=== PATIENT | male | born 1950 | race Caucasian/White ===

== ENCOUNTER 2022-03-30 10:35 | Emergency (ER) | payer OTHER, MEDICAID, SELFPAY ==
--- NOTE | ~2022-03-30 | CT_ITS ---
EXAMINATION: CT CHEST WITHOUT CONTRAST CLINICAL INFORMATION: Dyspnea. Recent rib fracture. COMPARISON: Previous chest x-ray most recent November [address] August 2018 TECHNIQUE: Axial images through the chest without IV contrast. This CT examination was performed using dose optimization techniques as appropriate, variously including the following: *Automated exposure control *Adjustment of mA and/or kV according to patient size (this includes techniques or standardized protocols for targeted exams where dose is matched to indication/reason for exam; i.e. extremities or head) *Use of iterative reconstruction technique DLP: 344 mGy-cm FINDINGS: LUNGS: There is scarring or subsegmental atelectasis at the right lung base. MEDIASTINUM: The heart is upper normal in size. There is mild coronary artery calcification. There is no pericardial effusion. There is evidence of atherosclerotic disease of the thoracic aorta. Aorta is normal in caliber. There are no enlarged hilar or mediastinal lymph nodes are PLEURA: There is a small right pleural effusion. There is no left pleural effusion. There is no pneumothorax. AXILLA: No lymphadenopathy. UPPER ABDOMEN: There is a 1 cm cyst in the upper pole of the right kidney. OSSEOUS STRUCTURES: There are healing right anterior second through sixth rib series. CT/CT chest wo con IMPRESSION: Healing right anterior second through sixth rib fractures. Segmental atelectasis at the right lung base. Small right pleural effusion. No pneumothorax. Fleischner guidelines were followed.
--- NOTE | ~2022-03-30 | NM_ITS ---
EXAMINATION: PULMONARY PERFUSION STUDY CLINICAL INFORMATION: Dyspnea, evaluate for pulmonary embolism. COMPARISON: No previous lung scan is available for comparison. Chest CT dated 03/30/2022, the same date as this lung scan, is available for comparison. The most recent chest radiographs available for comparison are dated 12/11/2019. TECHNIQUE: Following the intravenous administration of 4.0 mCi Tc-99m MAA an 8-view perfusion study was performed using a dual detector gamma scintillation camera. No ventilation images were obtained. FINDINGS: Perfusion images: No segmental perfusion defects are present. There is a mild diffuse decrease in activity in the right lung most severely at the right lung base. There is a small subsegmental perfusion defect present laterally in the right lower lobe but no additional focal anatomic appearing perfusion defects present. The contemporaneous CT scan shows a small right pleural effusion that is likely responsible for the mild diffusely decreased activity in the right lung described above. There is also some fluid tracking into the interlobar fissures that likely accounts for the small focal perfusion defect in this region described above. NM/NM pul perfusion IMPRESSION: Very low probability of pulmonary embolism. Mild abnormalities in the right lung are likely predominantly due to the right pleural effusion.
[2022-03-30 10:54] VITALS: BP 86/55; BP 96/61; PULSE 85; PULSE 96; RESP 16; O2SAT 96; O2SAT 98; BMI 40.4
--- NOTE | 2022-03-30 10:57 | ECG_ITS ---
Test Reason : hypotensive Blood Pressure : / mmHG Vent. Rate : 089 BPM Atrial Rate : 089 BPM P-R Int : 168 ms QRS Dur : 090 ms QT Int : 356 ms P-R-T Axes : 047 051 049 degrees QTc Int : 433 ms Normal sinus rhythm Normal ECG When compared with ECG of 29-MAR-2019 20:14, No significant change was found Referred By: Heidi Vivas Electronically Signed By:CONRAD ALEJO MD
--- NOTE | 2022-03-30 10:58 | ED_ITS ---
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 Mode of arrival: EMS Limitations: no limitations History of Present Illness MD Complaint: generalized weakness (low BP) Onset (ago): week(s) (2) Duration: constant Location: generalized Migration: none Severity: mild Quality: aching Relieving factors: none Exacerbating factors: other (has been taking his BP medications when they were held during [place] [facility] [place] PEA cardiac arrest post PE/fentanyl use complicated by CT and hemothorax, took his lisinopril and amlodipine this AM) Context: recent illness and other (resumed meds when they were held, takes his eliquis daily) Associated symptoms: other (chronic dyspnea since prior to his cardiac arrest) Related Data Allergies Allergy/AdvReac Type Severity Reaction Status Date / Time No Known Allergies Allergy Unverified 08/14/20 15:29 [No Known Allergies*] Review of Systems Review of Systems: Constitutional : No Fever, No Chills ENT/Mouth : No sore throat, No Rhinorrhea, No Swallowing Difficulty Eyes: No Eye Pain, No Swelling, No Redness Cardiovascular : No Chest Pain, positive SOB, No Orthopnea, no Edema Respiratory : No Cough, No Sputum, No Wheezing, positive dyspnea Gastrointestinal : No Nausea, No Vomiting, No Diarrhea, No abdominal Pain, No Hematochezia, No Melena Genitourinary : No Dysuria, No Urinary Frequency, No Hematuria Musculoskeletal : No joint pain, No Myalgias Skin : No Skin Lesions, No rash Neuro : No Weakness, No Numbness, No Dizziness, No Headache Psych : No Anxiety/Panic, No Depression Heme/Lymph: No Bruising, No Lymphadenopathy Endocrine : No Polyuria, No Polydipsia All other systems reviewed and are negative PMFSH Past Medical History Attestation statement: The following information was validated with the patient. Source: old records reviewed Medical History Asthma Cardiac arrest CVA (cerebral vascular accident) GERD (gastroesophageal reflux disease) Hyperlipemia Peripheral vascular disease Pulmonary embolus Social History Social History (Updated 03/30/22 @ 11:19 by Heidi Vivas DO) Patient Tobacco Use Status: Current everyday Tobacco user Advance Directives: No Advance Directives Information Provided: No Physical Exam Vital Signs: Vital Signs: Last Vital Signs Pulse 87 03/30/22 13:53 Resp 28 H 03/30/22 13:53 BP 106/70 03/30/22 13:00 Pulse Ox 97 03/30/22 13:00 BMI result Body Mass Index 40.4 Appearance: Alert. Oriented X3. No acute distress. Eyes: Pupils equal, round and reactive to light. ENT: Pharynx normal. Neck: Normal inspection. Neck supple. CVS: Normal heart rate and rhythm. Pulses normal. Respiratory: No respiratory distress. Breath sounds diminished both bases Abdomen: Soft and non-tender. Skin: Skin warm and dry. Normal skin color. Normal skin turgor. Extremities: No lower extremity edema. No calf ttp Neuro: Oriented X 3. No motor deficit. No sensory deficit. Course Course Course Narrative: [facility] [place] Cr 1.3 O2 supplementation DC notes - BP medications held on DC BP 94/52 BP increasing with fluids albuterol ordered, Cr at baseline, procalcitonin low no PE, small right pleural effusion which is expected no signs of infection has no complaints RR and pulm issues at baseline per [facility] [place] CM looking into supplemental O2 needs RR high due to patient splints because his ribs hurt we did discuss pulm toilet MDM - Weakness MDM Narrative Medical decision making narrative: 71 yo male with hx of PEA arreste due to bilateral PE on 02/17 at [facility] found to be fentanyl and opiate pos on 02/21 suffered respiratory distress found to have displaced rib fractures, costochondral fractures, R sided hemothorax and underwent R sided chest tube s/p removal 02/26. He was off HTN medications while in hospital due to low BPs but when he was DC 2 weeks ago he resumed his lisinopril 40mg and amlodipine 5mg. He took a dose this AM. Went to PCP for FU appointment and was found to be hypotensive other than persistent diff breathing he has no complaints no dizziness, no GIB symptoms. Reports he is compliant with his eliquis. Will obtain labs, CTA for pneumonia/recurrent PE given persistent dyspnea and start IVF. Hypotension due to medications and not infection or severe sepsis. The patient states he was not aware he was told hold his old medications - PCP has taken the BP medications and called the pharmacy to hold those medications Lab Data Result diagrams: 03/30/22 11:15 03/30/22 11:15 Labs: Lab Results 03/30/22 03/30/22 03/30/22 Range/Units 11:15 11:15 11:15 WBC 9.7 (4.8-10.8) X10*3/uL RBC 3.47 L (4.60-5.80) X10*6/uL Hgb 10.7 L (14.0-18.0) g/dl Hct 34.7 L (42.0-52.0) % MCV 100.0 H (80.0-98.0) fL MCH 30.8 (27.0-33.0) pg MCHC 30.8 L (31.0-36.0) g/dl RDW 16.2 H (11.0-16.0) % Plt Count 280 (160-400) X10*3/uL MPV 10.7 (9.4-12.4) fL Immature Gran % (Auto) 0.3 (0.0-0.4) % Neut % (Auto) 67.9 (45-73) % Lymph % (Auto) 24.8 (20-40) % [place] % (Auto) 5.5 (2-11) % Eos % (Auto) 1.2 (0-4) % Baso % (Auto) 0.3 (0-2) % Lymph # (Auto) 2.4 (1.2-4.9) X10*3/uL [place] # (Auto) 0.5 (0.1-1.2) X10*3/uL Eos # (Auto) 0.1 (0.0-0.4) X10*3/uL Baso # (Auto) 0.0 (0.0-0.2) X10*3/uL Abs Immat Gran (auto) 0.03 (0.00-0.03) X10*3/uL Absolute Neuts (auto) 6.6 (2.0-8.3) x10*3/uL Absolute Nucleated RBC 0.000 (0.0-0.012) X10*3/uL Nucleated RBC % (auto) 0.0 (0.0-0.2) /100WBC PT 18.7 H (9.9-13.0) SEC INR 1.6 H (0.9-1.1) APTT 33.0 (24.1-38.0) SEC Sodium 140 (135-145) mmol/L Potassium 4.2 (3.3-5.1) mmol/L Chloride 103 (96-108) mmol/L Carbon Dioxide 27 (22-29) mmol/L Anion Gap 14 (12-20) BUN 16 (9-16) mg/dL Creatinine 1.58 H (0.5-1.4) mg/dL Estim Creat Clear Calc 46.4 Estimated GFR 44 Random Glucose 135 H (60-115) mg/dL Lactic Acid (0.5-2.0) mmol/L Calcium 9.5 (8.4-10.2) mg/dL Magnesium 2.0 (1.6-2.6) mg/dL Total Bilirubin 0.6 (0.0-1.0) mg/dL Direct Bilirubin 0.2 (0.0-0.5) mg/dL AST 11 (5-37) U/L ALT 15 (0-40) U/L Alkaline Phosphatase 74 (39-117) U/L Troponin I High Sens (<3.5-35.0) ng/L Total Protein 6.4 L (6.5-8.0) g/dL Albumin 3.7 (3.5-5.0) g/dL Lipase 31 (8-78) U/L Procalcitonin ng/mL COVID-19 (RASHEL) (Negative) COVID-19 Clin Com 03/30/22 03/30/22 03/30/22 Range/Units 11:15 11:15 11:15 WBC (4.8-10.8) X10*3/uL RBC (4.60-5.80) X10*6/uL Hgb (14.0-18.0) g/dl Hct (42.0-52.0) % MCV (80.0-98.0) fL MCH (27.0-33.0) pg MCHC (31.0-36.0) g/dl RDW (11.0-16.0) % Plt Count (160-400) X10*3/uL MPV (9.4-12.4) fL Immature Gran % (Auto) (0.0-0.4) % Neut % (Auto) (45-73) % Lymph % (Auto) (20-40) % [place] % (Auto) (2-11) % Eos % (Auto) (0-4) % Baso % (Auto) (0-2) % Lymph # (Auto) (1.2-4.9) X10*3/uL [place] # (Auto) (0.1-1.2) X10*3/uL Eos # (Auto) (0.0-0.4) X10*3/uL Baso # (Auto) (0.0-0.2) X10*3/uL Abs Immat Gran (auto) (0.00-0.03) X10*3/uL Absolute Neuts (auto) (2.0-8.3) x10*3/uL Absolute Nucleated RBC (0.0-0.012) X10*3/uL Nucleated RBC % (auto) (0.0-0.2) /100WBC PT (9.9-13.0) SEC INR (0.9-1.1) APTT (24.1-38.0) SEC Sodium (135-145) mmol/L Potassium (3.3-5.1) mmol/L Chloride (96-108) mmol/L Carbon Dioxide (22-29) mmol/L Anion Gap (12-20) BUN (9-16) mg/dL Creatinine (0.5-1.4) mg/dL Estim Creat Clear Calc Estimated GFR Random Glucose (60-115) mg/dL Lactic Acid 2.5 H* (0.5-2.0) mmol/L Calcium (8.4-10.2) mg/dL Magnesium (1.6-2.6) mg/dL Total Bilirubin (0.0-1.0) mg/dL Direct Bilirubin (0.0-0.5) mg/dL AST (5-37) U/L ALT (0-40) U/L Alkaline Phosphatase (39-117) U/L Troponin I High Sens 7.1 (<3.5-35.0) ng/L Total Protein (6.5-8.0) g/dL Albumin (3.5-5.0) g/dL Lipase (8-78) U/L Procalcitonin 0.23 ng/mL COVID-19 (RASHEL) (Negative) COVID-19 Clin Com 03/30/22 Range/Units 11:33 WBC (4.8-10.8) X10*3/uL RBC (4.60-5.80) X10*6/uL Hgb (14.0-18.0) g/dl Hct (42.0-52.0) % MCV (80.0-98.0) fL MCH (27.0-33.0) pg MCHC (31.0-36.0) g/dl RDW (11.0-16.0) % Plt Count (160-400) X10*3/uL MPV (9.4-12.4) fL Immature Gran % (Auto) (0.0-0.4) % Neut % (Auto) (45-73) % Lymph % (Auto) (20-40) % [place] % (Auto) (2-11) % Eos % (Auto) (0-4) % Baso % (Auto) (0-2) % Lymph # (Auto) (1.2-4.9) X10*3/uL [place] # (Auto) (0.1-1.2) X10*3/uL Eos # (Auto) (0.0-0.4) X10*3/uL Baso # (Auto) (0.0-0.2) X10*3/uL Abs Immat Gran (auto) (0.00-0.03) X10*3/uL Absolute Neuts (auto) (2.0-8.3) x10*3/uL Absolute Nucleated RBC (0.0-0.012) X10*3/uL Nucleated RBC % (auto) (0.0-0.2) /100WBC PT (9.9-13.0) SEC INR (0.9-1.1) APTT (24.1-38.0) SEC Sodium (135-145) mmol/L Potassium (3.3-5.1) mmol/L Chloride (96-108) mmol/L Carbon Dioxide (22-29) mmol/L Anion Gap (12-20) BUN (9-16) mg/dL Creatinine (0.5-1.4) mg/dL Estim Creat Clear Calc Estimated GFR Random Glucose (60-115) mg/dL Lactic Acid (0.5-2.0) mmol/L Calcium (8.4-10.2) mg/dL Magnesium (1.6-2.6) mg/dL Total Bilirubin (0.0-1.0) mg/dL Direct Bilirubin (0.0-0.5) mg/dL AST (5-37) U/L ALT (0-40) U/L Alkaline Phosphatase (39-117) U/L Troponin I High Sens (<3.5-35.0) ng/L Total Protein (6.5-8.0) g/dL Albumin (3.5-5.0) g/dL Lipase (8-78) U/L Procalcitonin ng/mL COVID-19 (RASHEL) Negative (Negative) COVID-19 Clin Com See Note ECG Data Attestation: I personally reviewed and interpreted this ECG as follows: ECG interpretation date: 03/30/22 ECG interpretation time: 11:12 Interpretation: Rate: 89 Rhythm: NSR Haigler: normal Normal P waves. Normal CARA. Normal QRS complex. ST T wave : normal no IBRAHIMA qTC: normal prior studies: no acute ischemia The study has been interpreted contemporaneously by me. . Discharge Plan Discharge Clinical Impression: Hypotension Qualifiers: Hypotension type: hypotension due to drug Qualified Code(s): I95.2 - Hypotension due to drugs Patient Disposition: Home, Self-Care Instructions: Hypotension (ED) Additional Instructions: return to ED for any worsening symptoms or concerns regresar al servicio de urgencias por cualquier empeoramiento de los s?ntomas o inquietudes Controle valles presi?n arterial y aseg?rese de que no baje de 90 (el n?columba superior). NO TOME NORAH?N MEDICAMENTO PARA LA PRESI?N ARTERIAL consulte a valles m?dico habitual en 2 d?as Interventions: ED Discharge Assessment Last Done: 03/30/22 15:19 Discharge Date/Time: 03/30/22 15:20 Print Language: Norwegian
[2022-03-30] MEDS: 0.9 % Sodium Chloride 1,000 ML 999 ML IVCONT (11:22)
[2022-03-30 11:24] VITALS: BP 106/64
[2022-03-30 11:30] LABS: MANUAL DIFF FLAG NO
[2022-03-30 11:39] LABS: INTERNATIONAL NORM RATIO 1.6 (0.9-1.1); Prothrombin Time 18.7 SEC (9.9-13.0)
[2022-03-30 11:45] VITALS: BP 97/56; PULSE 89; RESP 38; O2SAT 95
[2022-03-30 11:48] LABS: Basophils Percent Auto 0.3 % (0-2); Eosinophils Absolute Auto 0.1 X10*3/uL (0.0-0.4); Eosinophils Percent Auto 1.2 % (0-4); Hematocrit 34.7 % (42.0-52.0); Hemoglobin 10.7 g/dl (14.0-18.0); Imm Gran Abs Auto 0.03 X10*3/uL (0.00-0.03); Imm Gran Pct Auto 0.3 % (0.0-0.4); Lactic Acid 2.5 mmol/L (0.5-2.0); Lymphocytes Absolute Auto 2.4 X10*3/uL (1.2-4.9); Lymphocytes Percent Auto 24.8 % (20-40); Mean Corpuscular HGB Conc 30.8 g/dl (31.0-36.0); Mean Corpuscular Hemoglobin 30.8 pg (27.0-33.0); Mean Platelet Volume 10.7 fL (9.4-12.4); Monocytes Absolute Auto 0.5 X10*3/uL (0.1-1.2); Monocytes Percent Auto 5.5 % (2-11); Neutrophils Absolute Auto 6.6 x10*3/uL (2.0-8.3); Neutrophils Percent Auto 67.9 % (45-73); Platelet Count 280 X10*3/uL (160-400); Red Blood Count 3.47 X10*6/uL (4.60-5.80); Red Cell Distribution Width 16.2 % (11.0-16.0); White Blood Count 9.7 X10*3/uL (4.8-10.8)
[2022-03-30 11:50] LABS: Alanine Aminotransferase 15 U/L (0-40); Albumin Level 3.7 g/dL (3.5-5.0); Alkaline Phosphatase 74 U/L (39-117); Anion Gap 14 (12-20); Aspartate Amino Transferase 11 U/L (5-37); Bilirubin Direct 0.2 mg/dL (0.0-0.5); Bilirubin Total 0.6 mg/dL (0.0-1.0); Blood Urea Nitrogen 16 mg/dL (9-16); Calcium 9.5 mg/dL (8.4-10.2); Carbon Dioxide 27 mmol/L (22-29); Chloride 103 mmol/L (96-108); Creatinine Clr Calc Pharmacy 46.4; Estimated Glomerular Filt Rate 44; Glucose Random 135 mg/dL (60-115); Lipase 31 U/L (8-78); Potassium 4.2 mmol/L (3.3-5.1); Sodium 140 mmol/L (135-145); Total Protein 6.4 g/dL (6.5-8.0)
[2022-03-30 11:56] LABS: COVID-19 Test Negative (Negative); IDNOW Serial# 16C4AD1C
[2022-03-30 11:57] LABS: Troponin-I High Sensitivity 7.1 ng/L (<3.5-35.0)
[2022-03-30 12:57] LABS: Procalcitonin 0.23 ng/mL
[2022-03-30 13:00] VITALS: BP 106/70; PULSE 88; RESP 16; O2SAT 97
[2022-03-30 13:29] LABS: Reflex Lactate? Lactic Acid Added
[2022-03-30] MEDS: Albuterol Sulfate (0.083%) 2.5 MG/3 ML VIAL.NEB INHALE (13:51)
[2022-03-30 13:53] VITALS: PULSE 87; RESP 28; O2SAT 97
== END 2022-03-30 15:20 | disposition home or self-care (01) ==
LOC: HO.ED 14:42
PROVIDERS: Emergency Provider Emergency Medicine; PCP Internal Medicine
DX: I95.2 Hypotension due to drugs (principal); F17.200 Nicotine dependence, unspecified, uncomplicated; Z20.822 Contact with and (suspected) exposure to COVID-19; Z79.899 Other long term (current) drug therapy; Z71.6 Tobacco abuse counseling
CPT/HCPCS: 71250; 78580; 80048; 80076; 83605; 83690; 83735; 84145; 84484; 85025; 85610; 85730; 87040; 87635; 93005; 94640; 96360; 99284; A9540

== ENCOUNTER 2022-04-07 09:39 | Outpatient (REF) | payer OTHER, MEDICAID, SELFPAY ==
--- NOTE | ~2022-04-07 | US_ITS ---
EXAMINATION: US VENOUS ULTRASOUND WITH DOPPLER LOWER EXTREMITY, BILATERAL CLINICAL INFORMATION: Leg pain and swelling. History of old left lower extremity DVT. COMPARISON: Left lower extremity DVT study 01/22/2013 TECHNIQUE: Ultrasound of the deep veins is performed from the hip to the calf with compression sonography and color and pulse Doppler assessment. Spectral analysis with color-flow imaging is performed. FINDINGS: RIGHT: Right common femoral vein demonstrates normal compressibility and color flow consistent with patency. The right profundus femoris vein is patent. Within the proximal portion of the right superficial femoral vein there is a linear echogenic focus resulting in incomplete compression of the vein although prominent color flow is noted. Findings have the appearance of nonocclusive chronic clot. The remainder of the right superficial femoral vein and popliteal vein demonstrate normal compressibility and color flow consistent with patency. Evaluation of the right calf veins limited secondary to overlying surgical scarring, however, there is also suggestion of some mild chronic clot within the peroneal vein. The right posterior tibial vein demonstrate normal compressibility and color flow consistent with patency. LEFT: There is normal venous compression and respiratory variation and augmented flow. The visualized common femoral vein, superficial femoral vein, profunda femoral vein, popliteal vein, and the trifurcation region shows no evidence of deep venous thrombosis. There is no significant popliteal fossa cyst. US/US venous duplex LE BI IMPRESSION: 1. No ultrasound evidence to suggest acute PE within either lower extremity. 2. Suspected mild nonocclusive thrombus within the proximal portion of the right superficial femoral vein and likely within the right peroneal vein. Clinical correlation recommended. Follow-up imaging can be obtained as clinically indicated.
== END 2022-04-07 09:40 | disposition home or self-care (01) ==
LOC: HO.US 09:39
PROVIDERS: PCP Internal Medicine; Visit Provider Registered Nurse Community Health
DX: M25.471 Effusion, right ankle (principal)
CPT/HCPCS: 93970

== ENCOUNTER 2022-04-08 10:05 | Outpatient (REF) | payer OTHER, MEDICAID, SELFPAY ==
--- NOTE | ~2022-04-08 | XR_ITS ---
EXAMINATION: XR ANKLE, RIGHT CLINICAL INFORMATION: Ankle effusion COMPARISON: None TECHNIQUE: AP, lateral, and mortise views of the right ankle. FINDINGS: Visualized portion of the distal tibia and fibula demonstrate no fracture. Ankle mortise is maintained. There is mild diffuse soft tissue swelling of the ankle. Tiny plantar calcaneal enthesophytes. Soft tissue surgical clips project over the medial calf. XR/XR ankle RT min 3V IMPRESSION: Mild soft tissue swelling of the ankle without fracture.
== END 2022-04-08 10:06 | disposition home or self-care (01) ==
LOC: HO.XRAY 10:05
PROVIDERS: Absent Provider Internal Medicine; PCP Internal Medicine; Visit Provider Registered Nurse Community Health
DX: M25.471 Effusion, right ankle (principal)
CPT/HCPCS: 73610

== ENCOUNTER 2022-06-14 15:33 | Outpatient (REF) | payer OTHER, SELFPAY | END 2022-06-14 15:34 | disposition home or self-care (01) | LOC: HO.CT 15:33 | PROVIDERS: PCP Internal Medicine; Visit Provider Surgery Vascular Surgery | DX: Z13.89 Encounter for screening for other disorder (principal) ==

== ENCOUNTER 2022-06-17 09:25 | Outpatient (REF) | payer OTHER, SELFPAY | END 2022-06-17 09:26 | disposition home or self-care (01) | LOC: HO.CT 09:25 | PROVIDERS: PCP Internal Medicine; Visit Provider Surgery Vascular Surgery | DX: Z13.89 Encounter for screening for other disorder (principal) ==

== ENCOUNTER 2022-06-21 12:40 | Outpatient (REF) | payer OTHER, SELFPAY ==
[2022-06-17] MEDS: iohexoL 350 MG/ML 100 ML INFUS..BTL IV (14:36)
--- NOTE | ~2022-06-21 | CT_ITS ---
STUDY PERFORMED: CTA ABDOMEN, PELVIS AND LOWER EXTREMITY RUNOFF WITH CONTRAST HISTORY: Pain in popliteal fossa and calf. DESCRIPTION: Routine abdominal aorta and lower extremity runoff CTA protocol with contrast was performed. 100 mL of Omnipaque 350 was administered. 3D POSTPROCESSING: Multiple 3-D angiographic images were processed from the initial data set by the [facility] under concurrent physician supervision. This CT examination was performed using dose optimization techniques as appropriate, variously including the following: *Automated exposure control *Adjustment of mA and/or kV according to patient size (this includes techniques or standardized protocols for targeted exams where dose is matched to indication/reason for exam; i.e. extremities or head) *Use of iterative reconstruction technique DLP: 1212 mGy-cm. COMPARISON: CT chest 03/30/2022, CT abdomen and pelvis 08/31/2018 FINDINGS: VASCULAR: ABDOMINAL AORTA: Mild atherosclerotic changes without aneurysm or dissection. RIGHT LOWER EXTREMITY: - Common Iliac Artery: Widely patent. - Internal Iliac Artery: Widely patent. - External Iliac Artery: Widely patent. - Common Femoral Artery: Widely patent. - Profunda Femoral Artery: Widely patent. - Superficial Femoral Artery: Occluded proximally. - Popliteal Artery: Occluded. - Tibioperoneal Trunk: Reconstituted and patent. - Posterior Tibial Artery: Small caliber seen to the mid calf with reconstitution at level of ankle. - Peroneal Artery: Patent. - Anterior Tibial Artery: Reconstituted via collaterals. LEFT LOWER EXTREMITY: - Common Iliac Artery: Occluded shortly after its origin. - Internal Iliac Artery: Occluded. - External Iliac Artery: Occluded. - Right to left cross femoral bypass graft: Occluded. - Common Femoral Artery: Occluded. - Profunda Femoral Artery: Occluded. Some branches reconstitute via collaterals. - Superficial Femoral Artery: Occluded with isolated segmental reconstitution in the distal thigh. - Popliteal Artery: Occluded. - Tibioperoneal Trunk: Reconstituted and patent. - Posterior Tibial Artery: Patent. - Peroneal Artery: Patent. - Anterior Tibial Artery: Reconstituted and patent. CELIOMESENTERIC ARTERIES: Celiac and SMA are patent. The AURELIANO origin is not seen. RENAL ARTERIES: 2 renal arteries are present on the right both with some mild ostial disease. Single left-sided renal artery which is patent. Incidental note made of retroaortic left renal vein. NONVASCULAR: Lung Bases: The visualized lung bases are unremarkable aside from bibasilar atelectasis/scarring, right greater than left. Liver, Gallbladder and Biliary Tree: The liver is normal in size, shape, and attenuation. No focal hepatic lesion or biliary ductal dilatation is present. The gallbladder is unremarkable with no evidence of radiopaque gallstones, gallbladder wall thickening, or obvious pericholecystic inflammatory changes. Pancreas: Unremarkable. Spleen: Unremarkable. Adrenal Glands: Unremarkable. Kidneys and Ureters: The kidneys are normal in size and attenuation. Some areas of focal scarring are present bilaterally. Bilateral Bosniak class I simple renal cysts are again seen which need no further follow-up. No hydronephrosis, hydroureter, or calculi seen. No perinephric stranding. Bladder: Unremarkable. Gastrointestinal Tract: The small and large bowel are unremarkable aside from the presence of colonic diverticula without diverticulitis. The appendix is unremarkable. Abdominal Wall: No significant hernia is appreciated. See above regarding cross femoral bypass graft. Lymph Nodes: No retroperitoneal lymphadenopathy. Pelvic Viscera: Unremarkable. Osseous Structures: Unremarkable. Some mild degenerative changes are seen in the lower thoracic spine. CT/CT angio abd aorta runoff IMPRESSION: 1. Right runoff significant for SFA occlusion and reconstituted tibial vessels as described above. 2. Left runoff significant for iliac occlusion as well as an occluded cross femoral bypass graft. There is segmental reconstitution of the isolated portion of distal SFA with reconstituted three-vessel runoff seen below the level of the knee. 3. Incidental nonvascular findings as described above.
== END 2022-06-21 12:41 | disposition home or self-care (01) ==
LOC: HO.CT 12:40
PROVIDERS: PCP Internal Medicine; Visit Provider Surgery Vascular Surgery
DX: Z01.818 Encounter for other preprocedural examination (principal); I99.8 Other disorder of circulatory system; I82.409 Acute embolism and thrombosis of unspecified deep veins of unspecified lower extremity
CPT/HCPCS: 75635; Q9967

== ENCOUNTER 2022-06-24 08:20 | Outpatient (REF) | payer OTHER, SELFPAY ==
--- NOTE | ~2022-06-24 | CT_ITS ---
EXAMINATION: CT ANGIOGRAM CHEST CLINICAL INFORMATION: Preop possible redo bypass. COMPARISON: CT chest 03/30/2022, CT abdomen and pelvis 08/31/2018. TECHNIQUE: Multiple axial images were obtained through the chest after the administration of 70 mL of Omnipaque 350 intravenous contrast. Extensive vascular post-processing including two-dimensional and three-dimensional reformatted images were created and reviewed on an independent workstation. This CT examination was performed using dose optimization techniques as appropriate, variously including the following: *Automated exposure control *Adjustment of mA and/or kV according to patient size (this includes techniques or standardized protocols for targeted exams where dose is matched to indication/reason for exam; i.e. extremities or head) *Use of iterative reconstruction technique DLP: 204 mGy-cm. VASCULAR FINDINGS: Calcific atherosclerotic changes are present in the thoracic aorta without aneurysm, dissection, stenosis or intramural ulceration. A three-vessel branching pattern of the aortic arch is seen with widely patent great vessels. Some minimal calcifications are seen at the origin of the left subclavian and left carotid without significant stenosis. The descending thoracic aorta is unremarkable. Some minimal calcific plaque seen in the visualized portion of the normal caliber abdominal aorta. The celiac and SMA included on this study are patent. A single right renal artery is seen in its entirety and is patent. Partial visualization of a smaller accessory right renal artery. Left renal artery not included on the exam. FINDINGS: LUNGS: Scattered areas of atelectasis/scarring are seen, right greater than left. The lungs are otherwise clear with no evidence of worrisome inflammation or nodules. MEDIASTINUM: Heart size normal. No mediastinal or hilar lymphadenopathy. PLEURA: Previously seen right pleural effusion has resolved. No remaining effusions are seen in either lung. AXILLA/CHEST WALL: No lymphadenopathy. UPPER ABDOMEN: There are areas of bilateral renal cortical scarring seen, slightly progressed when compared to 08/31/2018. The adrenal glands, visualized liver, gallbladder and spleen appear unremarkable. OSSEOUS STRUCTURES: Multiple old healed bilateral anterolateral rib fractures are once again seen. CT/CT angio chest aorta IMPRESSION: No significant abnormality is seen involving the thoracic aorta and great vessels. Previously seen right pleural effusion has resolved. There are areas of bilateral renal cortical scarring which have progressed slightly when compared to the 2018 study. Fleischner guidelines were followed.
[2022-06-24] MEDS: iohexoL 350 MG/ML 100 ML INFUS..BTL IV (09:36)
== END 2022-06-24 08:21 | disposition home or self-care (01) ==
LOC: HO.CT 08:20
PROVIDERS: PCP Internal Medicine; Visit Provider Surgery Vascular Surgery
DX: I99.8 Other disorder of circulatory system (principal); I82.409 Acute embolism and thrombosis of unspecified deep veins of unspecified lower extremity
CPT/HCPCS: 71275; Q9967

== ENCOUNTER → 2022-07-12 13:42 | Outpatient (BNVA) | payer OTHER, SELFPAY | PROVIDERS: PCP General Practice; Referring Provider General Practice; Visit Provider Internal Medicine Cardiovascular Disease | DX: Z01.810 Encounter for preprocedural cardiovascular examination (principal) | CPT/HCPCS: 93005; 99202 ==

== ENCOUNTER → 2022-07-15 14:28 | Outpatient (REF) | payer OTHER, SELFPAY ==
--- NOTE | 2022-07-15 14:30 | CA_ITS ---
Transthoracic Echocardiogram Patient (Last, First, Middle): Brenton Yarbrough, Gender: Male Date of : 1950 Age: 72 Procedure Date: 07/15/2022 Procedure Type: Transthoracic Echocardiogram Location: OP Height: 160.02 cm Weight: 95.26 kg BSA: 1.97 m2 Heart Rate: bpm BP: 120 / 78 mmHg Slate Splitter: TO Referring MD: Montrell Yanes MD Head Orthopedic Team Physician: Montrell Yanes MD Symptoms: I42.9 - Cardiomyopathy, unspecified Study Quality: Fair/Contrast ECG Rhythm: Sinus Conclusions: - 1. Normal LV systolic function with impaired relaxation filling pattern 2. Normal cardiac valvular Doppler 3. No gross pericardial effusion Findings Procedure Information Contrast agent, definity, is being given per protocol without apparent complications. Left Ventricle Normal left ventricular size and systolic function. There is mildly increased left ventricular wall thickness. The visually estimated ejection fraction is between 60-65%. Spectral Doppler is indicative of an impaired relaxation filling pattern. E/E prime ratio is between 8 and 15 consistent with indeterminate filling pressures. Right Ventricle Normal right ventricular cavity size. Atria The left atrium is normal in size. Interatrial shunt cannot be excluded. The right atrium was not well visualized. Aortic Valve The aortic valve structure and function is likely normal. There is no aortic valve stenosis. There is no aortic valve regurgitation. Mitral Valve Likely normal mitral valve structure and function. There is trace mitral valve regurgitation. There is no mitral valve stenosis. Pulmonic Valve The pulmonic valve was not well visualized. Tricuspid Valve The tricuspid valve was not well visualized. Tricuspid regurgitation envelope is inadequate for calculation of right ventricular systolic pressure. Great Vessels The aorta was not well visualized. The pulmonary artery was not well visualized. Venous The inferior vena cava is normal in size and collapses greater than 50% with inspiration. Pericardium/Pleural There is no evidence of pericardial effusion. Prior Study Comparison no previous study in the last 5 years for comparison Measurements 2D Linear Measurements IVSd: 1.37 0.6-0.9/0.6-1.0 cm LVIDd: 3.89 3.9-5.3/4.2-5.9 cm LVIDd Index: 1.97 2.4-3.2/2.2-3.1 cm/m2 LVIDs: 2.77 2.0-3.6 cm LVPWd: 1.33 0.7-1.1 cm LV Mass: 236.42 67-162/88-224 g LV Mass Index: 120.01 43-95/49-115 g/m2 2D Systolic Function EF 4C: 68.50 >55% EF 2C: 57.70 >55% EF BiP: 65.20 >55% Mitral Valve MV Pk E: 0.52 MV PK A: 0.84 MV Decel Time: 265.00 E/A: 0.60 E'Lateral: 10.40 E'Medial: 5.87 E/E' Med: 8.80 E/E' Lat: 5.00 PHT: 78.00 MVA PHT: 2.82 Decel [place]: 1.96 Diastolic Function MV Pk E: 0.52 MV Pk A: 0.84 E/A: 0.60 E'Medial: 5.87 E/E' Med: 8.80 E' Laterial: 10.40 E/E' Lat: 5.00 Updated in Other Vendor System with Status of Final Montrell Yanes MD electronically signed on 07/16/2022 2:58:27 PM with status of Final
== END ==
LOC: HO.CARD 14:28
PROVIDERS: PCP Internal Medicine; Visit Provider Internal Medicine Cardiovascular Disease
DX: I42.9 Cardiomyopathy, unspecified (principal)
CPT/HCPCS: 93308; Q9957

== ENCOUNTER → 2022-07-20 08:27 | Outpatient (REF) | payer OTHER, SELFPAY ==
--- NOTE | ~2022-07-20 | NM_ITS ---
Lexiscan Myocardial perfusion study Indication: Preoperative cardiac vascular evaluation Technique: The patient was brought in for a Lexiscan perfusion study on 07/20/2022 and was injected 0.4 mg of Lexiscan intravenously. Within a minute of this injection 30 mCi of sestamibi was given intravenously. Images were obtained using the SPECT gamma camera interlaced with the gating device. Images were obtained in supine position. Resting perfusion study was performed on 07/21/2022. Patient was administered 30 mCi of sestamibi intravenously at rest. Images were then obtained in supine position. Total DLP 119mGy-cm. Images were processed with the software and compared side to side in short axis, horizontal long axis and vertical long axis views. Findings: Raw acquisition reviewed. The stress perfusion study showed no significant perfusion abnormality. Both uncorrected as well as CT attenuation corrected images were reviewed. The gated study shows normal LV systolic function with calculated LVEF of 57%. LV cavity is normal in size. The gated study shows normal wall thickening and contraction of segments. Resting study shows no significant perfusion abnormality. Gating at rest reveals normal wall motion with ejection fraction at 44%. The findings are consistent with no definitive reversible or fixed perfusion defects. NM/NM brittanie perf SPECT rest & str Impression: 1. Myocardial perfusion imaging study shows likely normal myocardial perfusion. No definitive evidence of any ischemia or infarction. 2. Gated LVEF is 57% during stress and 44% during rest. Correlate with echocardiogram. 3. Transient ischemic dilatation not present. EKG component of the test reported separately.
--- NOTE | 2022-07-20 08:30 | CA_ITS ---
Acquisition Time: 2022-07-20 08:50:32 Total Exercise Time: 00:02:00 Test Indications: Dyspnea Medications: ELIQUIS CLOPIDOGREL BREO ELLIPTA GABAPENTIN SPIRIVA ALBUTEROL ROSUVASTATIN Protocol: LEXISCAN Max HR: 086 BPM 57% of Pred: 149 BPM Max BP: 146/090 mmHG Max Work Load: 1.0 METS Pharmacological stress test with Lexiscan injection, while sitting and kicking his leg, without anginal symptoms, without arrythmia, with normotensive response to injection, with nondiagnostic EKG for ischemia. Nuclear images pending. Test reviewed with Dr Vu. Referred By: Montrell Yanes Overread By: DEYSI MARQUEZ
== END ==
LOC: HO.CARD 08:27
PROVIDERS: PCP Internal Medicine; Visit Provider Internal Medicine Cardiovascular Disease
DX: Z01.810 Encounter for preprocedural cardiovascular examination (principal)
CPT/HCPCS: 78452; 93017; A9500; J0280; J2785

== ENCOUNTER → 2022-08-04 14:51 | Outpatient (BNVA) | payer OTHER, SELFPAY | PROVIDERS: PCP Internal Medicine; Visit Provider Internal Medicine | DX: E66.9 Obesity, unspecified (principal); G47.33 Obstructive sleep apnea (adult) (pediatric); J44.9 Chronic obstructive pulmonary disease, unspecified; F17.200 Nicotine dependence, unspecified, uncomplicated; Z99.89 Dependence on other enabling machines and devices | CPT/HCPCS: 99202 ==

== ENCOUNTER 2022-08-08 | Outpatient (REF) | payer OTHER, SELFPAY ==
--- NOTE | 2022-08-08 08:47 | PFT_ITS ---
ID NUMBER: [id number] Forced vital capacity 72%, FEV1 68%, FEV1/FVC ratio is 70. [id number] 55% and MVV is 47%. Post bronchodilator therapy, there is no change. Total lung capacity 73% and residual volume is 90%. Diffusion capacity 77% CONCLUSION: The above findings suggest that the patient has mild restrictive pulmonary disorder. Also mild obstructive airway disorder, but no response to bronchodilator therapy. Clinical correlation recommended. MD DEJA Stephens/GEORGE / [id number]
== END 2022-08-08 00:01 | disposition home or self-care (01) ==
LOC: HO.RESP
PROVIDERS: Visit Provider Internal Medicine
DX: Z01.818 Encounter for other preprocedural examination (principal); F17.200 Nicotine dependence, unspecified, uncomplicated
CPT/HCPCS: 94060; 94727; 94729

== ENCOUNTER 2022-08-12 13:18 | Outpatient (REF) | payer OTHER, SELFPAY ==
--- NOTE | ~2022-08-12 | US_ITS ---
EXAMINATION: US VENOUS ULTRASOUND WITH DOPPLER LOWER EXTREMITY, BILATERAL CLINICAL INFORMATION: Bilateral lower extremity pain and swelling COMPARISON: Bilateral DVT study 04/07/2022 TECHNIQUE: Ultrasound of the deep veins is performed from the hip to the calf with compression sonography and color and pulse Doppler assessment. Spectral analysis with color-flow imaging is performed. FINDINGS: RIGHT: There is normal venous compression and respiratory variation and augmented flow. The visualized common femoral vein, superficial femoral vein, profunda femoral vein, popliteal vein, and the trifurcation region and posterior tibial vein no evidence of deep venous thrombosis. Peroneal vein not well seen. There is no significant popliteal fossa cyst. 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 LEFT: There is normal venous compression and respiratory variation and augmented flow. The visualized common femoral vein, superficial femoral vein, profunda femoral vein, popliteal vein, and the trifurcation region and posterior tibial vein no evidence of deep venous thrombosis. Peroneal vein not well seen. There is no significant popliteal fossa cyst. If the patient's symptoms persist, followup ultrasound in 5 days 7 days might be of value to exclude proximal propagation from a non-visualized calf vein. US/US venous duplex LE BI IMPRESSION: No DVT demonstrated in the either lower extremity.
== END 2022-08-12 13:19 | disposition home or self-care (01) ==
LOC: HO.US 13:18
PROVIDERS: Visit Provider Registered Nurse Community Health
DX: M79.604 Pain in right leg (principal); M79.605 Pain in left leg
CPT/HCPCS: 93970

== ENCOUNTER → 2022-08-24 10:41 | Outpatient (BNVA) | payer OTHER, SELFPAY | PROVIDERS: PCP Internal Medicine; Visit Provider Internal Medicine | DX: G47.33 Obstructive sleep apnea (adult) (pediatric) (principal); J44.9 Chronic obstructive pulmonary disease, unspecified; E66.9 Obesity, unspecified; Z68.38 Body mass index [BMI] 38.0-38.9, adult; F17.210 Nicotine dependence, cigarettes, uncomplicated; Z99.89 Dependence on other enabling machines and devices | CPT/HCPCS: 99212 ==

== ENCOUNTER 2022-10-30 15:53 | Emergency (ER) | payer OTHER, SELFPAY ==
[2022-10-30] VITALS (12 sets, daily range): BP systolic 106–184; BP diastolic 56–80; PULSE 65–91; RESP 18–45; TEMP 32–36.4; O2SAT 88–97; BMI 33.3; BMI 32.8
--- NOTE | ~2022-10-30 | XR_ITS ---
EXAMINATION: XR CHEST CLINICAL INFORMATION: Highly placement COMPARISON: Chest x-ray performed earlier the same date TECHNIQUE: Frontal view of the chest was obtained. FINDINGS: Tip of endotracheal tube terminates approximately 3.4 cm above the suspected position of the gael. Right IJ central venous catheter terminates in the distal SVC. There is a be a new left IJ line, followed to the region of the left brachiocephalic vein followed toward the medial aspect of the aortic knob. The tip is obscured by the overlying external defibrillator pad. Enteric tube tip followed to the distal thoracic esophagus, unchanged. No pneumothorax. Lungs are hypoinflated. No airspace consolidation or pleural effusions. Unchanged cardiomediastinal silhouette. No evidence of pulmonary edema. No acute osseous injury identified. Status post left distal clavicle excision. XR/XR chest 1V IMPRESSION: 1. Tip of endotracheal tube terminates approximately 3.4 cm above the gael. 2. New left IJ line with tip obscured by overlying external defibrillator pad. Uncertain as to whether not this is venous or intra-arterial in position on the basis of this study. Correlate with blood return. 3. Enteric tube tip followed to the level of the distal thoracic esophagus. Portion of the tube overlying the upper neck appears coiled and redundant in the hypopharynx region. Suggest repositioning. 4. Low lung volumes. No acute pulmonary process.
--- NOTE | ~2022-10-30 | XR_ITS ---
EXAMINATION: XR chest 1V CLINICAL INFORMATION: Reason for Exam central line COMPARISON: Chest radiograph performed earlier in the day TECHNIQUE: One view of the chest FINDINGS: Clear lungs. No pneumothorax or pleural effusion. Unchanged cardiomediastinal silhouette. Interval placement of a right internal jugular central venous catheter tip terminating near the cavoatrial junction. Endotracheal tube tip terminates 3 cm above the gael. Enteric tube tip again terminates in the region of the gastroesophageal junction. XR/XR chest 1V IMPRESSION: * Interval placement of a right internal jugular central venous catheter tip terminating near the cavoatrial junction. No pneumothorax. * Enteric tube tip again terminates in the region of the gastroesophageal junction.
--- NOTE | ~2022-10-30 | XR_ITS ---
EXAMINATION: XR chest 1V CLINICAL INFORMATION: Reason for Exam intubation COMPARISON: Chest radiograph 12/11/2019 TECHNIQUE: One view of the chest FINDINGS: Clear lungs. No pneumothorax or pleural effusion. Endotracheal tube tip terminates 2.5 cm above the gael. Enteric tube terminates at the level of the gastroesophageal junction. Cardiac pacer pad overlies the mediastinum limiting evaluation. Within limitations, normal cardiomediastinal silhouette. XR/XR chest 1V IMPRESSION: * Endotracheal tube tip terminates 2.5 cm above the gael. * Enteric tube terminates at the level of the gastroesophageal junction.
--- NOTE | ~2022-10-30 | CT_ITS ---
EXAMINATION: CT ANGIOGRAM OF THE CHEST WITH AND WITHOUT CONTRAST (CT PULMONARY ANGIOGRAM FOR PE) CLINICAL INFORMATION: Reason for Exam sob COMPARISON: Chest CT 06/24/2022 TECHNIQUE: Prior to contrast administration, noncontrast localization images were obtained. Subsequently, multidetector volumetric imaging was performed from the thoracic inlet to below the diaphragms following the administration of 100 mL Omnipaque 350 intravenous contrast. No contrast reaction reported Sagittal, coronal, and MIP oblique sagittal reformatted images were obtained on the CT workstation, uploaded to PACS, and reviewed. This CT examination was performed using dose optimization techniques as appropriate, variously including the following: *Automated exposure control *Adjustment of mA and/or kV according to patient size (this includes techniques or standardized protocols for targeted exams where dose is matched to indication/reason for exam; i.e. extremities or head) *Use of iterative reconstruction technique Total exam dose-length product 518 mGy-cm FINDINGS: QUALITY OF STUDY/CONTRAST BOLUS: Satisfactory. PULMONARY ARTERIES: No central or segmental pulmonary emboli. THORACIC AORTA: No aneurysm or dissection. LUNG: Mild dependent bilateral atelectasis. No airspace consolidation. No suspicious pulmonary nodule. No pneumothorax. Central airways are clear. PLEURA: No pleural effusion or pneumothorax. MEDIASTINUM: Prominent heart size. No pericardial effusion. No mediastinal or hilar lymphadenopathy. No evidence of septal bowing or right heart strain. CHEST WALL/AXILLA: No axillary or internal mammary lymphadenopathy. OSSEOUS STRUCTURES: No acute or suspicious osseous abnormality. Chronic bilateral rib fracture deformities. Mild height loss of a few midthoracic vertebral bodies. No acute fracture. Mild multilevel degenerative disc disease. No suspicious osseous lesion. UPPER ABDOMEN: Prominently distended fluid-filled stomach. 1.1 cm low-density right upper pole renal cyst with rim calcification, Bosniak category-2. Mild thickening of left adrenal gland. Imaged upper abdominal viscera otherwise unremarkable. No reflux of contrast into the hepatic veins to suggest elevated right heart pressures. CT/CT angio chest PE protocol IMPRESSION: 1. No evidence of pulmonary embolus. 2. Mild dependent atelectasis. No airspace consolidation or effusions. VTE: negative
--- NOTE | ~2022-10-30 | CT_ITS ---
EXAMINATION: CT CERVICAL SPINE WITHOUT CONTRAST CLINICAL INFORMATION: Pain status post fall COMPARISON: MRI cervical spine 12/12/2015 TECHNIQUE: Axial, coronal, and sagittal reconstructed images were generated from the patient's CTA head and neck performed the same date. This CT examination was performed using dose optimization techniques as appropriate, variously including the following: *Automated exposure control *Adjustment of mA and/or kV according to patient size (this includes techniques or standardized protocols for targeted exams where dose is matched to indication/reason for exam; i.e. extremities or head) *Use of iterative reconstruction technique FINDINGS: Slightly decreased [id number] ratio particularly in the lower cervical spine slightly images evaluation . Alignment:Normal. No subluxation. Vertebra:No acute fracture. No prevertebral soft tissue swelling. Degenerative disc disease:Multilevel degenerative disc disease. There is mild disc height loss at C5-C6. Intervertebral disc heights maintained. Scattered small endplate osteophytes and mild endplate sclerosis. Facet arthrosis bilaterally most prominently at C3-C4 and C4-C5. Mild right sided predominant uncovertebral spurring at C6 and C7. Other findings:Visualized lung apices grossly clear. Please see dedicated CTA report for details of vascular findings. CT/CT cervical spine wo IV con IMPRESSION: 1. No traumatic subluxation or acute cervical spine fracture. 2. Mild multilevel degenerative disc disease and facet arthrosis.
--- NOTE | ~2022-10-30 | CT_ITS ---
EXAMINATION: CT ABDOMEN AND PELVIS WITH CONTRAST CLINICAL INFORMATION: Abdominal pain COMPARISON: 06/17/2022 TECHNIQUE: Multidetector volumetric images were obtained from the superior aspect of the liver through the pubic symphysis following administration 85 mL of Omnipaque 350 intravenous contrast. Sagittal and coronal reformatted images were obtained on the technologist's workstation. Oral contrast: No This CT examination was performed using dose optimization techniques as appropriate, variously including the following: *Automated exposure control *Adjustment of mA and/or kV according to patient size (this includes techniques or standardized protocols for targeted exams where dose is matched to indication/reason for exam; i.e. extremities or head) *Use of iterative reconstruction technique DLP: 1279.7 mGy-cm FINDINGS: LUNG BASES: The visualized lung bases are unremarkable. LIVER, GALLBLADDER, AND BILIARY TREE: The liver is normal in size, shape, and attenuation. No focal hepatic lesion or biliary ductal dilatation is present. The gallbladder is unremarkable with no evidence of radiopaque gallstones, gallbladder wall thickening, or obvious pericholecystic inflammatory changes. PANCREAS: Unremarkable. SPLEEN: Unremarkable. ADRENAL GLANDS: Diffuse thickening of the left adrenal gland in the medial limb of the right adrenal gland, unchanged. KIDNEYS AND URETERS: Diffuse heterogeneous attenuation of the kidneys without a discrete contrast in the ureters or bladder. No hydronephrosis. Stable right renal cyst and nonobstructing calculus in the lower pole. Stranding of the deep left infrarenal fat although this is similar to prior studies. BLADDER: Unremarkable. GASTROINTESTINAL TRACT: The stomach is distended with an air-fluid level. Small and large bowel loops are unremarkable. Normal appendix. ABDOMINAL WALL: No significant hernia is appreciated. LYMPH NODES: Normal. VASCULAR: Atherosclerotic calcifications. Femoral bypass graft without contrast opacification although this could be due to timing of the contrast bolus. This is not adequately evaluated on this study. Correlate clinically. PELVIC VISCERA: Unremarkable. OSSEOUS STRUCTURES: Unremarkable. CT/CT abdomen pelvis w IV con IMPRESSION: 1. No focal inflammatory process or obstruction. The stomach is distended with an air-fluid level. 2. Diffuse heterogeneous attenuation of the kidneys without contrast in the ureters or bladder. This could represent ATN/acute or chronic renal insufficiency. No hydronephrosis. Correlate with renal function. 3. Nonobstructing right renal calculus. 4. Stable thickening of the left adrenal gland and medial limb of the right adrenal gland. 5. Nonspecific stranding of the deep left infrarenal fat, similar to prior studies. 6. Femoral bypass graft without contrast opacification although this could be due to timing of the contrast bolus. This is not adequately evaluated on this study.
--- NOTE | ~2022-10-30 | CT_ITS ---
EXAMINATION: CT HEAD WITHOUT CONTRAST CLINICAL INFORMATION: Acute mental status change COMPARISON: None TECHNIQUE: Imaging was performed from the skull base to vertex without intravenous administration of contrast. This CT examination was performed using dose optimization techniques as appropriate, variously including the following: *Automated exposure control *Adjustment of mA and/or kV according to patient size (this includes techniques or standardized protocols for targeted exams where dose is matched to indication/reason for exam; i.e. extremities or head) *Use of iterative reconstruction technique Total exam dose length product: 801 mGy-cm FINDINGS: No intra or extra-axial fluid collection, hemorrhage, or mass. No ventriculomegaly. No midline shift or herniation. Basal cisterns are patent. Mcpherson-white matter differentiation is maintained. No territorial encephalomalacia. Proportional prominence of the ventricles and sulcal spaces is consistent with mild volume loss. Patchy periventricular and deep white matter hypoattenuation is consistent with moderate small vessel ischemic changes. Hypoattenuation consistent with remote lacunar infarct along the lateral margin of the left thalamus is unchanged. 2.3 cm right posterior scalp lipoma overlying the right occipital bone. No calvarial fracture. Cysts 0.5 cm dense sclerotic osteoma in the right frontal sinus. Small mucous retention cyst in the left maxillary sinus. Mastoid air cells normally aerated. CT/CT head for stroke IMPRESSION: 1. No intracranial hemorrhage or acute edematous territorial infarct. 2. Mild cerebral atrophy and moderate chronic small vessel ischemic white matter change. 3. Unchanged remote left thalamic infarct. This critical result was discussed with Dr. Romero at 4:30 PM on 10/30/2022 and it was ascertained that the content and urgency of the report was understood at the time of direct communication.
--- NOTE | ~2022-10-30 | CT_ITS ---
CT ANGIOGRAM NECK WITH CONTRAST CT ANGIOGRAM BRAIN WITH CONTRAST CLINICAL INFORMATION: Left leg weakness. COMPARISON: Head CT 10/30/2022. TECHNIQUE: Test bolus sequences followed by intravenous administration 100 mL of Omnipaque 350. Helical imaging was performed in the axial plane from the thoracic inlet to the skull vertex. Delayed postcontrast imaging of the head was also performed. The data was processed at the instructional design technologist workstation for generation of MIP sequences. Angled MIPs and volume rendered reformatted images were also generated at an offline 3D workstation under concurrent supervision. Stenoses are assessed in accordance with NASCET criteria unless otherwise indicated. This CT examination was performed using dose optimization techniques as appropriate, variously including the following: *Automated exposure control *Adjustment of mA and/or kV according to patient size (this includes techniques or standardized protocols for targeted exams where dose is matched to indication/reason for exam; i.e. extremities or head) *Use of iterative reconstruction technique FINDINGS: BRAIN: [There is moderate chronic microangiopathy and there is a chronic lacunar infarct within the left thalamus. There is no intracranial hemorrhage, hydrocephalus, extra-axial surface collection, midline shift, or other herniation pattern. Mcpherson to white matter differentiation is diffusely maintained without evidence of an evolved acute territorial infarct. The basilar cisterns are preserved. No significant soft tissue abnormality. No acute osseous abnormality. The paranasal sinuses and the mastoid air cells are well aerated.] CERVICAL SOFT TISSUES AND LUNG APICES: Bilateral dependent atelectasis. There is multilevel cervical spondylosis. No significant soft tissue findings are appreciated within the neck. Partially imaged chronic compression deformities within the thoracic spine. NECK CTA: [There is a classic 3 vessel configuration of the aortic arch. There is atherosclerotic calcification involving the great vessel origins bilaterally. Atherosclerotic disease results in a stenosis of the mid left subclavian artery which is not diagnostically assessed due to artifact. The right vertebral artery is dominant. No significant ostial stenosis is visualized on either side. Both vertebral arteries are widely patent throughout their extracranial cervical course. Both common carotid arteries are normal in course and caliber.] There is atherosclerotic calcification involving the carotid bifurcations bilaterally likely resulting in less than 50% stenoses of the proximal internal carotid arteries bilaterally however assessment is very limited due to the degree of motion artifact. BRAIN CTA: [There is normal opacification of major intracranial arteries. No focal flow-limiting stenosis nor discrete proximal large artery occlusion. No aneurysm. Timing of the contrast bolus allows assessment of the major dural venous sinuses, which all opacify normally] CT/CT angio head neck stroke IMPRESSION: - No acute intracranial findings. There is moderate chronic microangiopathy and there is a chronic lacunar infarct within the left thalamus. If focal neurologic deficit persists, MRI would be more sensitive in assessment. - No acute arterial occlusions intracranially. - There is atherosclerotic calcification involving the carotid bifurcations bilaterally likely resulting in less than 50% stenoses of the proximal internal carotid arteries bilaterally however assessment is very limited due to the degree of motion artifact. Portions of the common carotid arteries are not diagnostically assessed due to motion. - Atherosclerotic disease results in a stenosis of the mid left subclavian artery which is not diagnostically assessed due to artifact. Covering provider has been paged with these findings at 4:56 PM on 10/30/2022. Findings were discussed with Dr. Romero at 5:05 PM on 10/30/2022.
--- NOTE | 2022-10-30 08:18 | ECG_ITS ---
Test Reason : SOB Blood Pressure : / mmHG Vent. Rate : 091 BPM Atrial Rate : 091 BPM P-R Int : 256 ms QRS Dur : 124 ms QT Int : 396 ms P-R-T Axes : 056 022 064 degrees QTc Int : 487 ms Sinus rhythm with 1st degree A-V block Possible Inferior infarct , age undetermined Abnormal ECG When compared with ECG of 30-OCT-2022 16:50, Sinus rhythm has replaced VT/AIVR Referred By: Jayla Romero Electronically Signed By:CONRAD ALEJO MD
--- NOTE | 2022-10-30 16:12 | ECG_ITS ---
Test Reason : FALL Blood Pressure : / mmHG Vent. Rate : 108 BPM Atrial Rate : 000 BPM P-R Int : 000 ms QRS Dur : 186 ms QT Int : 504 ms P-R-T Axes : 000 -42 070 degrees QTc Int : 675 ms Wide QRS rhythm with frequent Premature ventricular complexes Left axis deviation Left bundle branch block Abnormal ECG When compared with ECG of 30-MAR-2022 10:59, Wide QRS rhythm has replaced Sinus rhythm Referred By: Jayla Romero Electronically Signed By:Bo Schreiber
[2022-10-30 16:18] LABS: ~PT, ~INR - Anti Coag Clinic 1.3 (0.9-1.1)
--- NOTE | 2022-10-30 16:21 | ED.SOB ---
HPI - SOB/Dyspnea General Chief Complaint: Fall Stated Complaint: found on floor/leg weakness Time Seen by Provider: 10/30/22 15:58 History of Present Illness HPI Narrative: Patient is a 72-year-old male with a long history of polysubstance abuse. 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 History of pulmonary emboli supposed to be on Eliquis unsure patient actually took his medication. History of being on Plavix in the past for vascular problems. 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 Patient admits to drinking alcohol today. History of COPD continue to smoke on a regular basis history of sleep apnea. Patient today somehow got on the ground. Unsure if he fell. Unsure if he had dizziness. Patient cannot recall. Subsequently patient claims that he feels very weak. He feels short of breath. Positive generalized malaise. Especially worse in the left lower extremity. Patient claims baseline he is able to ambulate. He is unsure when the last time he actually can move his lower legs. Been on the ground for at least 3 hours. Related Data Home Medications Medication Instructions Recorded Confirmed acetaminophen 325 mg tablet 650 mg PO Q8H PRN 07/12/22 albuterol sulfate 2.5 mg/3 mL mg inhalation Q6H PRN 07/12/22 (0.083 %) solution for nebulization albuterol sulfate 90 mcg/actuation 2 puff PO Q4-6H PRN 07/12/22 aerosol inhaler (ProAir HFA) apixaban 5 mg tablet (Eliquis) 5 mg PO BID 07/12/22 clopidogrel 75 mg tablet 75 mg PO DAILY 07/12/22 fluticasone furoate 100 1 ea PO DAILY 07/12/22 mcg-vilanterol 25 mcg/dose inhalation powder (Breo Ellipta) gabapentin 600 mg tablet 600 mg PO TID 07/12/22 rosuvastatin 40 mg tablet 40 mg PO DAILY 07/12/22 tiotropium bromide 2.5 2 puff inhalation DAILY 07/12/22 mcg/actuation mist for inhalation (Spiriva Respimat) Allergies Allergy/AdvReac Type Severity Reaction Status Date / Time No Known Allergies Allergy Unverified 08/24/22 13:13 [No Known Allergies*] Review of Systems Review of Systems: Positive generalized malaise. Patient unable to answer detailed questions for review system Yes Unobtainable due to mental condition PMFSH Past Medical History Attestation statement: The following information was validated with the patient. Medical History Asthma Cardiac arrest COPD (chronic obstructive pulmonary disease) CVA (cerebral vascular accident) GERD (gastroesophageal reflux disease) Hyperlipemia Obesity (BMI 30-39.9) BRENT on CPAP Peripheral vascular disease Pulmonary embolus Smoker Social History Social History Patient Tobacco Use Status: Current everyday Tobacco user Cigarette Packs Per Day: 0.5 Cigarettes Per Day: 8 Advance Directives: No Advance Directives Information Provided: Yes Physical Exam Vital Signs: Vital Signs: Last Vital Signs Temp 95.4 F L 10/30/22 20:00 Pulse 89 10/30/22 20:00 Resp 18 10/30/22 20:00 BP 137/72 10/30/22 20:00 Pulse Ox 91 L 10/30/22 20:00 O2 Del Method 10/30/22 20:00 O2 Flow Rate 50 10/30/22 20:00 FiO2 30 10/30/22 20:00 BMI result Body Mass Index 32.8 Appearance: Alert. Oriented X3. Sick appearing breathing at approximately 30 5 times a minute Eyes: Pupils equal, round and reactive to light. ENT: Pharynx normal. Neck: Normal inspection. Neck supple. No lymph nodes noted. No crepitus CVS: Normal heart rate and rhythm. Pulses normal. Normal S1 and S2 Respiratory: Diminished breath sounds bilaterally wheezing bilaterally the basis Abdomen: Soft and nontender. No rigidity. No distention. good BS x4 Skin: Skin warm and dry. Left lower extremity was cold, somewhat cyanotic. Extremities: Positive bilateral lower extremity edema. Barely able to move his toes on the right side. Unable to move his left lower extremity at all. The left lower extremity appears cold. Sensation grossly intact. Pain intact. Neuro: Oriented X 3. Significant weakness in bilateral lower extremity. No sensory deficit. No slurred speech. Bilateral upper extremity show good strength. Medications Administered Generic Name Dose Route Start Last Admin Trade Name Freq PRN Reason Stop Dose Admin Sodium Bicarbonate 150 meq/ 1,000 mls @ 150 mls/hr 10/30/22 18:30 10/30/22 18:45 Dextrose IV 150 mls/hr .Q6H40M AIXA Administration Propofol 1,000 mg in 100 mls @ 0 mls/hr 10/30/22 19:15 10/30/22 19:15 Diprivan IVCONT 30 mcg/kg/min .Q0M AIXA 18.18 mls/hr Administration Protocol Per Protocol Discontinued Medications Generic Name Dose Route Start Last Admin Trade Name Freq PRN Reason Stop Dose Admin Dexamethasone Sodium Phosphate 10 mg 10/30/22 19:54 10/30/22 20:10 Dexamethasone Sod Phosphate 10 Mg/Ml Vial IVPUSH 10/30/22 19:55 10 mg ONCE ONE Administration Sodium Chloride 1,000 mls @ 999 mls/hr 10/30/22 17:45 10/30/22 18:00 Ns IV 10/30/22 18:45 999 mls/hr .Q1H1M AIXA Administration Ceftriaxone Sodium 1 gm/ 50 mls @ 100 mls/hr 10/30/22 17:43 10/30/22 18:47 Sodium Chloride IV 10/30/22 18:12 100 mls/hr ONCE ONE Administration Sodium Bicarbonate 50 meq/ 1,000 mls @ 150 mls/hr 10/30/22 17:45 10/30/22 18:51 Dextrose IV Not Given .Q6H40M AIXA Sodium Bicarbonate 150 meq/ 1,100 mls @ 150 mls/hr 10/30/22 17:49 10/30/22 18:52 Dextrose IV Not Given .Q7H20M AIXA Sodium Chloride 3,030 mls @ 3,030 mls/hr 10/30/22 19:28 10/30/22 19:53 Ns 30 ml/kg infuse over 1 hr (3030 ml) 10/30/22 20:27 3,030 mls/hr IV Administration .Q1H STA Iohexol 100 ml 10/30/22 16:53 10/30/22 16:53 Iohexol 350 Mg/Ml 100 Ml Infus..Btl IV 10/30/22 16:54 70 ml ONCE ONE Administration Iohexol 100 ml 10/30/22 17:09 10/30/22 17:12 Iohexol 350 Mg/Ml 100 Ml Infus..Btl IV 10/30/22 17:10 85 ml ONCE ONE Administration MDM - SOB/Dyspnea MDM Narrative Medical decision making narrative: 17:00 Patient's initial lactate came back over 7. [place] the result was due to a lab error. As the blood was grossly hemolyzed. Redraw lab is being done. 17:00 Patient has a history of being on Eliquis. Unsure patient is taking his medication. Patient is not a candidate for tPA. Unsure when the exact down time is. Patient also has a significant trauma question fell from his bed. Awaiting labs at this point CT head was grossly negative for any acute evidence of bleeding. CT angio of the head and neck is pending. CT angio of the chest is pending. Additional labs are pending. 17:30 EJ placed in the left side. No complication. Does good flashback. IV fluid running. 18:30 patient has increased respiratory rate. Patient had an episode of widened QRS. Bradycardia. Question hyperkalemia. Patient was given bicarb and also given calcium chloride x 2 amps. QRS narrow nicely. Patient blood pressure improved. Still breathing very fast. At this point this CT result came back. CT head was grossly negative. CTA showed no large vessel occlusion. CT of the chest showed no large PE no pneumonia. CT of the abdomen pelvis showed no acute abscess perforation obstruction there is question kidney injury noted. Patient's initial lab was hemolyzed. Repeat labs being drawn. Cultures were obtained. Antibiotic was started ABG showed a profound metabolic acidosis. Patient was intubated. Chest x-ray confirmed placement of the OG and ET tube. Placed on standard vents setting. Central line placed for access. 19:00 patient electrolyte return. His CPK is about 50,000. Likely causing the renal insufficiency. Patient's creatinine is approximately 4 and half which is new. Patient's potassium came back at 9. Likely caused by the acute renal insufficiency. Renal was informed. Agreed patient needs urgent dialysis. Patient's case discussed with the dowel setting machine operator. [place] that this time there is no capacity available at [facility]. Wants patient to be transferred. 20:00 attempted to contact [facility] is full. Attempted to contact [facility] tavares Ervin is does not have the capacity. Patient's case discussed with [facility], awaiting final response. Patient is on a bicarb drip 20:15. [facility] excepted patient to Dr. Ayala service patient going to the emergency department. Attempted to get ground transportation but failed. The patient is going to be flown by [employer]. 20:30 informed by [facility] patient cannot be transferred by helicopter due to weather condition. Patient's case spoken with EMS again. Patient to be transferred by ground. Currently in critical condition. ICU PA came down put in a dialysis catheter. Patient is in critical condition. Attempted to contact patient's family. Left a message. No reply. Lab Data Result diagrams: 10/30/22 16:32 10/30/22 17:57 Labs: Lab Results 10/30/22 10/30/22 10/30/22 Range/Units 16:16 16:18 16:32 WBC 16.8 H (4.8-10.8) X10*3/uL RBC 5.05 D (4.60-5.80) X10*6/uL Hgb 16.6 D (14.0-18.0) g/dl Hct 50.6 D (42.0-52.0) % MCV 100.2 H (80.0-98.0) fL MCH 32.9 (27.0-33.0) pg MCHC 32.8 (31.0-36.0) g/dl RDW 15.2 (11.0-16.0) % Plt Count 274 (160-400) X10*3/uL MPV 11.2 (9.4-12.4) fL Immature Gran % (Auto) 0.7 H (0.0-0.4) % Neut % (Auto) 89.1 H (45-73) % Lymph % (Auto) 4.6 L (20-40) % [place] % (Auto) 5.4 (2-11) % Eos % (Auto) 0.0 (0-4) % Baso % (Auto) 0.2 (0-2) % Lymph # (Auto) 0.8 L (1.2-4.9) X10*3/uL [place] # (Auto) 0.9 (0.1-1.2) X10*3/uL Eos # (Auto) 0.0 (0.0-0.4) X10*3/uL Baso # (Auto) 0.0 (0.0-0.2) X10*3/uL Abs Immat Gran (auto) 0.11 H (0.00-0.03) X10*3/uL Absolute Neuts (auto) 15.0 H (2.0-8.3) x10*3/uL Absolute Nucleated RBC 0.000 (0.0-0.012) X10*3/uL Nucleated RBC % (auto) 0.0 (0.0-0.2) /100WBC PT (10.0-13.1) SEC Whole Blood PT 15.0 H (11.1-13.5) sec INR (0.9-1.1) Whole Blood INR 1.3 H (0.9-1.1) O2 Saturation % ABG pH at Pt Temp (7.35-7.45) ABG pCO2 at Pt Temp (32-45) mmHg ABG pO2 at Pt Temp (83-108) mmHg ABG HCO3 (22-26) mmol/L ABG Base Excess (Actual) mmol/L Sodium (135-145) mmol/L Potassium (3.3-5.1) mmol/L Chloride (96-108) mmol/L Carbon Dioxide (22-29) mmol/L Anion Gap (12-20) BUN (9-16) mg/dL Creatinine (0.5-1.4) mg/dL Estim Creat Clear Calc Estimated GFR POC Glucose 175 H (60-115) mg/dL Random Glucose (60-115) mg/dL Lactic Acid Calcium (8.4-10.2) mg/dL Total Bilirubin (0.0-1.0) mg/dL Direct Bilirubin (0.0-0.5) mg/dL AST (5-37) U/L ALT (0-40) U/L Alkaline Phosphatase (39-117) U/L Total Creatine Kinase (38-174) U/L Troponin I High Sens (<3.5-35.0) ng/L B-Natriuretic Peptide (<100) pg/mL Total Protein (6.5-8.0) g/dL Albumin (3.5-5.0) g/dL Hold Red Top Urine Color Urine Appearance Urine pH (5.0-9.0) Ur Specific [place] (1.005-1.025) Urine Protein (Neg-Trace) mg/dL Urine Glucose (UA) (Negative) mg/dL Urine Ketones (Negative) mg/dL Urine Blood (Negative) Urine Nitrite (Negative) Ur Leukocyte Esterase (Negative) Urine RBC (0-2) /HPF Urine WBC (0-5) /HPF Ur Squamous Epith Cells (0-2) /HPF Urine Bacteria (None Seen) Hyaline Casts (0-2) /LPF Ethyl Alcohol mg/dL 10/30/22 10/30/22 10/30/22 Range/Units 16:32 16:32 16:32 WBC (4.8-10.8) X10*3/uL RBC (4.60-5.80) X10*6/uL Hgb (14.0-18.0) g/dl Hct (42.0-52.0) % MCV (80.0-98.0) fL MCH (27.0-33.0) pg MCHC (31.0-36.0) g/dl RDW (11.0-16.0) % Plt Count (160-400) X10*3/uL MPV (9.4-12.4) fL Immature Gran % (Auto) (0.0-0.4) % Neut % (Auto) (45-73) % Lymph % (Auto) (20-40) % [place] % (Auto) (2-11) % Eos % (Auto) (0-4) % Baso % (Auto) (0-2) % Lymph # (Auto) (1.2-4.9) X10*3/uL [place] # (Auto) (0.1-1.2) X10*3/uL Eos # (Auto) (0.0-0.4) X10*3/uL Baso # (Auto) (0.0-0.2) X10*3/uL Abs Immat Gran (auto) (0.00-0.03) X10*3/uL Absolute Neuts (auto) (2.0-8.3) x10*3/uL Absolute Nucleated RBC (0.0-0.012) X10*3/uL Nucleated RBC % (auto) (0.0-0.2) /100WBC PT 12.2 (10.0-13.1) SEC Whole Blood PT (11.1-13.5) sec INR 1.1 (0.9-1.1) Whole Blood INR (0.9-1.1) O2 Saturation % ABG pH at Pt Temp (7.35-7.45) ABG pCO2 at Pt Temp (32-45) mmHg ABG pO2 at Pt Temp (83-108) mmHg ABG HCO3 (22-26) mmol/L ABG Base Excess (Actual) mmol/L Sodium (135-145) mmol/L Potassium (3.3-5.1) mmol/L Chloride (96-108) mmol/L Carbon Dioxide (22-29) mmol/L Anion Gap (12-20) BUN (9-16) mg/dL Creatinine (0.5-1.4) mg/dL Estim Creat Clear Calc Estimated GFR POC Glucose (60-115) mg/dL Random Glucose (60-115) mg/dL Lactic Acid TNP Calcium (8.4-10.2) mg/dL Total Bilirubin (0.0-1.0) mg/dL Direct Bilirubin (0.0-0.5) mg/dL AST (5-37) U/L ALT (0-40) U/L Alkaline Phosphatase (39-117) U/L Total Creatine Kinase (38-174) U/L Troponin I High Sens (<3.5-35.0) ng/L B-Natriuretic Peptide (<100) pg/mL Total Protein (6.5-8.0) g/dL Albumin (3.5-5.0) g/dL Hold Red Top See Note Urine Color Urine Appearance Urine pH (5.0-9.0) Ur Specific [place] (1.005-1.025) Urine Protein (Neg-Trace) mg/dL Urine Glucose (UA) (Negative) mg/dL Urine Ketones (Negative) mg/dL Urine Blood (Negative) Urine Nitrite (Negative) Ur Leukocyte Esterase (Negative) Urine RBC (0-2) /HPF Urine WBC (0-5) /HPF Ur Squamous Epith Cells (0-2) /HPF Urine Bacteria (None Seen) Hyaline Casts (0-2) /LPF Ethyl Alcohol mg/dL 10/30/22 10/30/22 10/30/22 Range/Units 16:32 17:31 17:57 WBC (4.8-10.8) X10*3/uL RBC (4.60-5.80) X10*6/uL Hgb (14.0-18.0) g/dl Hct (42.0-52.0) % MCV (80.0-98.0) fL MCH (27.0-33.0) pg MCHC (31.0-36.0) g/dl RDW (11.0-16.0) % Plt Count (160-400) X10*3/uL MPV (9.4-12.4) fL Immature Gran % (Auto) (0.0-0.4) % Neut % (Auto) (45-73) % Lymph % (Auto) (20-40) % [place] % (Auto) (2-11) % Eos % (Auto) (0-4) % Baso % (Auto) (0-2) % Lymph # (Auto) (1.2-4.9) X10*3/uL [place] # (Auto) (0.1-1.2) X10*3/uL Eos # (Auto) (0.0-0.4) X10*3/uL Baso # (Auto) (0.0-0.2) X10*3/uL Abs Immat Gran (auto) (0.00-0.03) X10*3/uL Absolute Neuts (auto) (2.0-8.3) x10*3/uL Absolute Nucleated RBC (0.0-0.012) X10*3/uL Nucleated RBC % (auto) (0.0-0.2) /100WBC PT (10.0-13.1) SEC Whole Blood PT (11.1-13.5) sec INR (0.9-1.1) Whole Blood INR (0.9-1.1) O2 Saturation 97.0 % ABG pH at Pt Temp 7.07 L* (7.35-7.45) ABG pCO2 at Pt Temp 40 (32-45) mmHg ABG pO2 at Pt Temp 125 H (83-108) mmHg ABG HCO3 12 L (22-26) mmol/L ABG Base Excess (Actual) -17.2 mmol/L Sodium 128 L (135-145) mmol/L Potassium 9.0 H* D (3.3-5.1) mmol/L Chloride 97 (96-108) mmol/L Carbon Dioxide 14 L (22-29) mmol/L Anion Gap 26 H (12-20) BUN 36 H (9-16) mg/dL Creatinine 4.31 H* (0.5-1.4) mg/dL Estim Creat Clear Calc 18.4 Estimated GFR 14 POC Glucose (60-115) mg/dL Random Glucose 165 H (60-115) mg/dL Lactic Acid Calcium 10.5 H D (8.4-10.2) mg/dL Total Bilirubin 0.2 (0.0-1.0) mg/dL Direct Bilirubin < 0.2 (0.0-0.5) mg/dL AST 496 H (5-37) U/L ALT 125 H (0-40) U/L Alkaline Phosphatase 57 (39-117) U/L Total Creatine Kinase > 58880 H (38-174) U/L Troponin I High Sens (<3.5-35.0) ng/L B-Natriuretic Peptide (<100) pg/mL Total Protein 5.9 L (6.5-8.0) g/dL Albumin 3.4 L (3.5-5.0) g/dL Hold Red Top Urine Color Urine Appearance Urine pH (5.0-9.0) Ur Specific [place] (1.005-1.025) Urine Protein (Neg-Trace) mg/dL Urine Glucose (UA) (Negative) mg/dL Urine Ketones (Negative) mg/dL Urine Blood (Negative) Urine Nitrite (Negative) Ur Leukocyte Esterase (Negative) Urine RBC (0-2) /HPF Urine WBC (0-5) /HPF Ur Squamous Epith Cells (0-2) /HPF Urine Bacteria (None Seen) Hyaline Casts (0-2) /LPF Ethyl Alcohol < 10 mg/dL 10/30/22 10/30/22 10/30/22 Range/Units 18:20 19:39 19:52 WBC (4.8-10.8) X10*3/uL RBC (4.60-5.80) X10*6/uL Hgb (14.0-18.0) g/dl Hct (42.0-52.0) % MCV (80.0-98.0) fL MCH (27.0-33.0) pg MCHC (31.0-36.0) g/dl RDW (11.0-16.0) % Plt Count (160-400) X10*3/uL MPV (9.4-12.4) fL Immature Gran % (Auto) (0.0-0.4) % Neut % (Auto) (45-73) % Lymph % (Auto) (20-40) % [place] % (Auto) (2-11) % Eos % (Auto) (0-4) % Baso % (Auto) (0-2) % Lymph # (Auto) (1.2-4.9) X10*3/uL [place] # (Auto) (0.1-1.2) X10*3/uL Eos # (Auto) (0.0-0.4) X10*3/uL Baso # (Auto) (0.0-0.2) X10*3/uL Abs Immat Gran (auto) (0.00-0.03) X10*3/uL Absolute Neuts (auto) (2.0-8.3) x10*3/uL Absolute Nucleated RBC (0.0-0.012) X10*3/uL Nucleated RBC % (auto) (0.0-0.2) /100WBC PT (10.0-13.1) SEC Whole Blood PT (11.1-13.5) sec INR (0.9-1.1) Whole Blood INR (0.9-1.1) O2 Saturation % ABG pH at Pt Temp (7.35-7.45) ABG pCO2 at Pt Temp (32-45) mmHg ABG pO2 at Pt Temp (83-108) mmHg ABG HCO3 (22-26) mmol/L ABG Base Excess (Actual) mmol/L Sodium (135-145) mmol/L Potassium (3.3-5.1) mmol/L Chloride (96-108) mmol/L Carbon Dioxide (22-29) mmol/L Anion Gap (12-20) BUN (9-16) mg/dL Creatinine (0.5-1.4) mg/dL Estim Creat Clear Calc Estimated GFR POC Glucose (60-115) mg/dL Random Glucose (60-115) mg/dL Lactic Acid 5.1 H* Calcium (8.4-10.2) mg/dL Total Bilirubin (0.0-1.0) mg/dL Direct Bilirubin (0.0-0.5) mg/dL AST (5-37) U/L ALT (0-40) U/L Alkaline Phosphatase (39-117) U/L Total Creatine Kinase (38-174) U/L Troponin I High Sens 376.2 H* D (<3.5-35.0) ng/L B-Natriuretic Peptide (<100) pg/mL Total Protein (6.5-8.0) g/dL Albumin (3.5-5.0) g/dL Hold Red Top Urine Color RED Urine Appearance Hazy Urine pH 6.5 (5.0-9.0) Ur Specific [place] 1.015 (1.005-1.025) Urine Protein 300 (3+) H (Neg-Trace) mg/dL Urine Glucose (UA) 100 H (Negative) mg/dL Urine Ketones Negative (Negative) mg/dL Urine Blood Large (3+) H (Negative) Urine Nitrite Positive H (Negative) Ur Leukocyte Esterase Trace H (Negative) Urine RBC >20 H (0-2) /HPF Urine WBC 11-20 (0-5) /HPF Ur Squamous Epith Cells 6-10 (0-2) /HPF Urine Bacteria 4+ (None Seen) Hyaline Casts 0-2 (0-2) /LPF Ethyl Alcohol mg/dL 10/30/22 Range/Units 19:52 WBC (4.8-10.8) X10*3/uL RBC (4.60-5.80) X10*6/uL Hgb (14.0-18.0) g/dl Hct (42.0-52.0) % MCV (80.0-98.0) fL MCH (27.0-33.0) pg MCHC (31.0-36.0) g/dl RDW (11.0-16.0) % Plt Count (160-400) X10*3/uL MPV (9.4-12.4) fL Immature Gran % (Auto) (0.0-0.4) % Neut % (Auto) (45-73) % Lymph % (Auto) (20-40) % [place] % (Auto) (2-11) % Eos % (Auto) (0-4) % Baso % (Auto) (0-2) % Lymph # (Auto) (1.2-4.9) X10*3/uL [place] # (Auto) (0.1-1.2) X10*3/uL Eos # (Auto) (0.0-0.4) X10*3/uL Baso # (Auto) (0.0-0.2) X10*3/uL Abs Immat Gran (auto) (0.00-0.03) X10*3/uL Absolute Neuts (auto) (2.0-8.3) x10*3/uL Absolute Nucleated RBC (0.0-0.012) X10*3/uL Nucleated RBC % (auto) (0.0-0.2) /100WBC PT (10.0-13.1) SEC Whole Blood PT (11.1-13.5) sec INR (0.9-1.1) Whole Blood INR (0.9-1.1) O2 Saturation % ABG pH at Pt Temp (7.35-7.45) ABG pCO2 at Pt Temp (32-45) mmHg ABG pO2 at Pt Temp (83-108) mmHg ABG HCO3 (22-26) mmol/L ABG Base Excess (Actual) mmol/L Sodium (135-145) mmol/L Potassium (3.3-5.1) mmol/L Chloride (96-108) mmol/L Carbon Dioxide (22-29) mmol/L Anion Gap (12-20) BUN (9-16) mg/dL Creatinine (0.5-1.4) mg/dL Estim Creat Clear Calc Estimated GFR POC Glucose (60-115) mg/dL Random Glucose (60-115) mg/dL Lactic Acid Calcium (8.4-10.2) mg/dL Total Bilirubin (0.0-1.0) mg/dL Direct Bilirubin (0.0-0.5) mg/dL AST (5-37) U/L ALT (0-40) U/L Alkaline Phosphatase (39-117) U/L Total Creatine Kinase (38-174) U/L Troponin I High Sens (<3.5-35.0) ng/L B-Natriuretic Peptide 255 H (<100) pg/mL Total Protein (6.5-8.0) g/dL Albumin (3.5-5.0) g/dL Hold Red Top Urine Color Urine Appearance Urine pH (5.0-9.0) Ur Specific [place] (1.005-1.025) Urine Protein (Neg-Trace) mg/dL Urine Glucose (UA) (Negative) mg/dL Urine Ketones (Negative) mg/dL Urine Blood (Negative) Urine Nitrite (Negative) Ur Leukocyte Esterase (Negative) Urine RBC (0-2) /HPF Urine WBC (0-5) /HPF Ur Squamous Epith Cells (0-2) /HPF Urine Bacteria (None Seen) Hyaline Casts (0-2) /LPF Ethyl Alcohol mg/dL Procedures Central Line Placement Right IJ: Time Out Performed: Yes Patient Placed on Monitor/Pulse Ox: Yes MD Prep: mask Central Line Prep: Chlorhexidine scrub Local Anesthetic: lidocaine 1% Ultrasound Used for Placement: Yes Central Line Lumen Inserted: triple Post Procedure: sutured in place Post Procedure X-Ray: tip of catheter in good position and no pneumothorax seen Patient Tolerated Procedure: well Complications: none EJ/Peripheral Line Neck L: Time Out Performed: Yes Skin Cleansed in Sterile Fashion: Yes Size (gauge): 18 IV Secured and Dressing Applied: No Patient Tolerated Procedure: well Intubation Time out performed: Yes sedative: Etomidate Mg Given: 20 paralytic: Rocuronium Mg Given: 100 Laryngoscope: fiber optic video scope ET Tube Size: 7.5 ET Tube Uncuffed: No Tube Secured Depth (cm): 21 Tube Secured Location: lips Tube Placement Confirmation: visualized tube passing through cords Patient Tolerated Procedure: well Intubation Complications: none Additional Comments: OG tube placed as well. No complication. Critical Care Time Critical Care Time Critical Care Time: Yes Total Critical Care Time: 200 Attestation: I have personally provided 200 minutes of critical care time exclusive of time spent on separately billable procedures. Time includes review of lab data, radiology results, discussion with consultants, and monitoring for potential decompensation. Interventions were performed as documented above Discharge Plan Discharge Clinical Impression: Acute renal failure, Rhabdomyolysis, Acute hyperkalemia Patient Disposition: [facility] Transfer Details: [place] Prescriptions: No Action acetaminophen 325 mg tablet 650 mg PO Q8H PRN albuterol sulfate [ProAir HFA] 90 mcg/actuation HFA aerosol inhaler 2 puff PO Q4-6H PRN fluticasone furoate-vilanterol [Breo Ellipta] 100-25 mcg/dose blister with device 1 ea PO DAILY Spiriva Respimat 2.5 mcg/actuation mist 2 puff inhalation DAILY albuterol sulfate 2.5 mg /3 mL (0.083 %) solution for nebulization inhalation Q6H PRN clopidogrel 75 mg tablet 75 mg PO DAILY Eliquis 5 mg tablet 5 mg PO BID gabapentin 600 mg tablet 600 mg PO TID rosuvastatin 40 mg tablet 40 mg PO DAILY
[2022-10-30 16:22] LABS: Glucose, Whole Blood 175 mg/dL (60-115)
--- NOTE | 2022-10-30 16:35 | PC.NURSE ---
Stroke protocol called after assessment with Dr Romero. Pt reports leg weakness started approx 3 hrs [employer]. Left lower extrmity purple and cool to touch. Old scar noted to lateral side. Pt in CT scan at this time. breathing continues labored, sat 93% on 3lpm via nc, increased to 4lpm. Awaiting scan delay. IV placed to left AC.
[2022-10-30 16:38] LABS: MANUAL DIFF FLAG NO
[2022-10-30 16:40] LABS: Basophils Percent Auto 0.2 % (0-2); Hematocrit 50.6 % (42.0-52.0); Hemoglobin 16.6 g/dl (14.0-18.0); Imm Gran Abs Auto 0.11 X10*3/uL (0.00-0.03); Imm Gran Pct Auto 0.7 % (0.0-0.4); Lymphocytes Absolute Auto 0.8 X10*3/uL (1.2-4.9); Lymphocytes Percent Auto 4.6 % (20-40); Mean Corpuscular HGB Conc 32.8 g/dl (31.0-36.0); Mean Corpuscular Hemoglobin 32.9 pg (27.0-33.0); Mean Corpuscular Volume 100.2 fL (80.0-98.0); Mean Platelet Volume 11.2 fL (9.4-12.4); Monocytes Absolute Auto 0.9 X10*3/uL (0.1-1.2); Monocytes Percent Auto 5.4 % (2-11); Neutrophils Percent Auto 89.1 % (45-73); Platelet Count 274 X10*3/uL (160-400); Red Blood Count 5.05 X10*6/uL (4.60-5.80); Red Cell Distribution Width 15.2 % (11.0-16.0); White Blood Count 16.8 X10*3/uL (4.8-10.8)
[2022-10-30 16:46] LABS: INTERNATIONAL NORM RATIO 1.1 (0.9-1.1); Prothrombin Time 12.2 SEC (10.0-13.1)
[2022-10-30] MEDS: iohexoL 350 MG/ML 100 ML INFUS..BTL IV ×2 (16:53→17:12)
[2022-10-30 16:55] LABS: Ethanol < 10 mg/dL
[2022-10-30 17:08] LABS: Stroke Lab Use COMPLETE
--- NOTE | 2022-10-30 17:36 | PC.NURSE ---
pt presents with sob, difficulty breathing. using abdominal muscle and pursed breathing. tachypneac, sleepy but arouses to voice. awaiting abgs. left lower extremity pulses unable to be obtained by doppler, dr. Romero aware.
[2022-10-30 17:37] LABS: ABG Base Excess -17.2 mmol/L; ABG HCO3 12 mmol/L (22-26); ABG pCO2 40 mmHg (32-45); ABG pH 7.07 (7.35-7.45); ABG pO2 125 mmHg (83-108)
[2022-10-30] MEDS: 0.9 % Sodium Chloride 1,000 ML 999 ML IV (18:00)
[2022-10-30 18:21] LABS: Alanine Aminotransferase 125 U/L (0-40); Albumin Level 3.4 g/dL (3.5-5.0); Alkaline Phosphatase 57 U/L (39-117); Anion Gap 26 (12-20); Aspartate Amino Transferase 496 U/L (5-37); Bilirubin Direct < 0.2 mg/dL (0.0-0.5); Bilirubin Total 0.2 mg/dL (0.0-1.0); Blood Urea Nitrogen 36 mg/dL (9-16); Calcium 10.5 mg/dL (8.4-10.2); Carbon Dioxide 14 mmol/L (22-29); Chloride 97 mmol/L (96-108); Creatinine Clr Calc Pharmacy 18.4; Estimated Glomerular Filt Rate 14; Glucose Random 165 mg/dL (60-115); Sodium 128 mmol/L (135-145); Total Protein 5.9 g/dL (6.5-8.0)
[2022-10-30 18:37] LABS: Lactic Acid 5.1 mmol/L (0.5-2.0)
[2022-10-30] MEDS: Sodium Bicarbonate 8.4% 150 MEQ in Dextrose 5 % 850 ML IV (18:45)
[2022-10-30] MEDS: cefTRIAXone sodium 1 GM in 0.9 % Sodium Chloride 50 ML IV (18:47)
--- NOTE | 2022-10-30 18:48 | PC.NURSE ---
See paper documentation and vitals print out for further details Romero at bedside at this time placing central line. Pelaez in place, noted with dark red tinted urine. NSR on monitor rate 80s. Synchronous with vent at this time. Verbal order for Propofol for sedatio however per Dr Romero hold at this time. Bicarb gtt infusing at 150ml/hr per order
[2022-10-30] MEDS: propofoL 1,000 MG/100 ML VIAL 18.18 MG IVCONT (19:15)
[2022-10-30 19:47] LABS: Appearance Urine Hazy; Color Urine RED; Glucose Urine UA 100 mg/dL (Negative); Leukocyte Esterase Urine Trace (Negative); Nitrite Urine Positive (Negative); PH 6.5 (5.0-9.0); Specific Gravity - Urine 1.015 (1.005-1.025); UMIC TRIGGER UACC YES; Urine Blood Large (3+) (Negative); Urine Ketones Negative (Negative); Urine Protein 300 (3+) mg/dL (Neg-Trace)
--- NOTE | 2022-10-30 19:48 | PC.NURSE ---
[facility]'s Transfer Line called at 1928 per spoke with Magui she stated they are closed to ICU transfers. [facility] Transfer Line called at 1929 per spoke with Janet she stated they are closed to ICU transfers. [facility]'s Transfer Line called at 1931 per spoke with Shawnee higgins patient demographics, speaking with provider at this time.
[2022-10-30 19:56] LABS: RBC Urine >20 /HPF (0-2); UACC Culture Trigger YES
[2022-10-30 19:57] LABS: Bacteria Urine 4+ (None Seen); Hyaline Casts Urine 0-2 /LPF (0-2)
[2022-10-30] MEDS: dexAMETHasone sod phosphate 10 MG/ML VIAL IVPUSH (20:10)
[2022-10-30 20:19] LABS: B Type Natriuretic Peptide 255 pg/mL (<100)
[2022-10-30 20:23] LABS: Reflex Lactate? Lactic Acid Added
[2022-10-30 20:26] LABS: Troponin-I High Sensitivity 376.2 ng/L (<3.5-35.0)
[2022-10-30 20:41] LABS: Influenza A PCR NEGATIVE (Negative); Influenza B PCR NEGATIVE (Negative); Resp Syncy Virus RNA Qual PCR NEGATIVE (Negative); SARS COV2 PCR INHOUSE NEGATIVE (Negative)
--- NOTE | 2022-10-30 20:45 | W.PM.CCHP ---
Procedures Date of Service Date of Service: 10/30/22 Central Line Placement Left IJ: Central Line Comments: Patient in acute renal failure, requiring emergent dialysis. dialysis catheter placed in the emergency room under sterile conditions on left IJ without immediate complication. Placement confirmed with chest x-ray Consent for Procedure: Emergent-no informed consent obtained Time out performed: Yes Sterile Technique Used: Yes Patient placed on monitor/pulse ox: Yes MD prep: mask, gown and gloves Central line prep: Chlorhexidine scrub Ultrasound used for placement: Yes Post procedure: sutured in place, good blood return, all ports aspirated, flushed, capped and sterile dressing applied Post procedure x-ray: tip of catheter in good position and no pneumothorax seen Patient tolerated procedure: well and no complications Complications: none
[2022-10-30 20:47] LABS: Thyroid Stimulating Hormone 1.44 uIU/mL (0.32-4.0)
--- NOTE | 2022-10-30 20:54 | PC.NURSE ---
At 2009 accepted patient to [facility] [place]. [facility] called at 2011 for a stat ALS transfer per , Matt from dispatch stated that it would be a while due to there als trucks being on was made aware. At 2026 [facility] was called per , they declined patient due weather. At 2033 I spoke with Matt from [facility] told him that [facility] was unable to take patient he stated they would be able to within 30mins.Rn and Md aware.
--- NOTE | 2022-10-30 21:37 | PC.NURSE ---
At 2133 [facility] was called for an update on the ETA for transport spoke with Matt he stated he wasn't sure when he would be able to transfer due to needing 2 medics was made aware.At 2136 asked to speak with [facility] called and gave the phone to provider.
--- NOTE | 2022-10-30 21:45 | PC.NURSE ---
At 2144 Matt called from [facility] stated they were 5mins away. and Rn aware
--- NOTE | 2022-10-30 22:38 | PC.NURSE ---
Nurse to nurse report called to [facility].
[2022-10-30 23:04] LABS: ABG Refer to POC result
== END 2022-10-30 22:30 | disposition short-term general hospital (02) ==
PROVIDERS: Emergency Provider Emergency Medicine Emergency Medical Services; PCP Internal Medicine
DX: N17.9 Acute kidney failure, unspecified (principal); M62.82 Rhabdomyolysis; E87.5 Hyperkalemia; R53.1 Weakness; E87.20 Acidosis, unspecified; R06.02 Shortness of breath; R60.0 Localized edema; Z20.822 Contact with and (suspected) exposure to COVID-19; F19.10 Other psychoactive substance abuse, uncomplicated; E78.5 Hyperlipidemia, unspecified; F17.210 Nicotine dependence, cigarettes, uncomplicated; E66.9 Obesity, unspecified; Z68.32 Body mass index [BMI] 32.0-32.9, adult; Z86.711 Personal history of pulmonary embolism; Z79.01 Long term (current) use of anticoagulants; Z79.02 Long term (current) use of antithrombotics/antiplatelets; Z79.899 Other long term (current) drug therapy; Z86.73 Personal history of transient ischemic attack (TIA), and cerebral infarction without residual deficits
CPT/HCPCS: 0241U; 31500; 36410; 36415; 36556; 70450; 70496; 70498; 71045; 71275; 72125; 74177; 80048; 80076; 81001; 82077; 82550; 82803; 82947; 83605; 83880; 84443; 84484; 85025; 85610; 87040; 87086; 87088; 87186; 93005; 94002; 96374; 96375; 96376; 99285; J0171; J0461; J0696; J1100; Q9967